=== PATIENT | female | born 1995 | race Caucasian/White ===

== ENCOUNTER → 2019-08-12 13:12 | Outpatient (BNVA) | payer MEDICAID, SELFPAY | PROVIDERS: PCP Family Medicine; Visit Provider Nurse Practitioner Women's Health | DX: Z01.89 Encounter for other specified special examinations (principal) | CPT/HCPCS: 84315 ==

== ENCOUNTER → 2019-08-27 14:05 | Outpatient (BNVA) | payer MEDICAID, SELFPAY | PROVIDERS: PCP Family Medicine; Visit Provider Obstetrics & Gynecology | DX: Z34.82 Encounter for supervision of other normal pregnancy, second trimester (principal) | CPT/HCPCS: 80307; 84315; 85027; 86592; 86762; 86803; 86850; 86900; 87086; 87340; 87491; 87591; 87806 ==

== ENCOUNTER → 2019-09-02 15:40 | Outpatient (BNVA) | payer MEDICAID, SELFPAY | PROVIDERS: PCP Family Medicine; Visit Provider Obstetrics & Gynecology | DX: Z3A.15 15 weeks gestation of pregnancy (principal); Z36.87 Encounter for antenatal screening for uncertain dates; O99.212 Obesity complicating pregnancy, second trimester | CPT/HCPCS: 76815; 82950 ==

== ENCOUNTER → 2019-09-04 10:51 | Outpatient (BNVA) | payer MEDICAID, SELFPAY | PROVIDERS: PCP Family Medicine; Referring Provider Obstetrics & Gynecology; Visit Provider Obstetrics & Gynecology | DX: R76.8 Other specified abnormal immunological findings in serum (principal) | CPT/HCPCS: 87522; 87902 ==

== ENCOUNTER → 2019-10-09 09:28 | Outpatient (BNVA) | payer MEDICAID, SELFPAY | PROVIDERS: Visit Provider Obstetrics & Gynecology | DX: Z36.89 Encounter for other specified antenatal screening (principal); Z3A.20 20 weeks gestation of pregnancy | CPT/HCPCS: 76805 ==

== ENCOUNTER 2019-10-09 11:55 | Emergency (ER) | payer MEDICAID, SELFPAY ==
[2019-10-09 12:03] VITALS: BP 123/85; PULSE 104; RESP 18; TEMP 36.7; O2SAT 97; BMI 34.1
[2019-10-09 12:11] VITALS: O2SAT 97
--- NOTE | 2019-10-09 12:41 | W.ED.GENADLT ---
HPI - General Adult General: Chief complaint: Nausea/Vomiting/Diarrhea Stated complaint: n/v 21 weeks Time Seen by Provider: 10/09/19 12:30 History of Present Illness: HPI narrative: 24-year-old female patient who is 21 weeks and presents to the emergency department with nausea and vomiting that started yesterday. She vomited somewhere between 10 and 15 times overnight. Last time she was able to keep anything down was yesterday morning. She went to her OBs office today for an ultrasound and the baby was looking good but because she is unable to keep anything down she is referred here for evaluation. She also has reduced urination. complaint: nausea/vomiting Onset (ago): day(s) (1 day) Severity: severe Associated symptoms: Reports chest pain; Deny dyspnea, headache(s), nausea, rash, palpitations or vomiting Review of Systems General: Reports: 10 or more systems reviewed and unremarkable except in HPI and below Const: Denies: fever, chills or body aches Eyes: Denies: change in vision or blurry vision ENMT: Denies: throat pain, enlarged tonsils, painful swallowing, hoarseness, mouth pain or swelling of lips/tongue Card: Reports: chest pain; Denies: palpitations, irregular heart rhythm, edema or swelling of feet/ankles Resp: Denies: shortness of breath, productive cough or non-productive cough GI: Denies: abdominal pain, nausea or vomiting : Denies: flank pain, difficulty urinating, painful urination, urinary frequency, urinary urgency or urinary hesitancy Musc: Denies: neck pain, back pain or extremity swelling Skin/Breast: Denies: rash, itching or redness Neuro: Denies: headache, numbness in extremities or weakness in extremities Endo: Denies: excessive urination, excessive thirst or tired all the time PFSH ED PFSH: Medical History (Updated 10/09/19 @ 15:15 by Michell George MD, [facility] [place]) Anxiety Surgical History (Updated 08/30/19 @ 14:17 by Mook Shaw MD) History of cholecystectomy (07/20/11) Laparoscopic. Performed by Dr. Loaiza at [facility] [place]. Family History (Updated 08/30/19 @ 14:24 by Mook Shaw MD) Grandfather Heart disease MATERNAL Diabetes Maternal Father No problems noted. Family/Other Stomach cancer Maternal uncle Breast cancer Maternal aunt Diabetes Maternal uncle Mother Multiple sclerosis Social History Smoking and tobacco status: current every day smoker cigarettes Packs smoked per day: 1 [ Other cigarette details: Started age 13. ] Smoking risk assessment/counseling performed?: Yes Alcohol intake: never Marital status: Physical Exam Narrative: EXAM NARRATIVE: Well-looking female in no real distress Const: COMMON NORMALS: no apparent distress EXAM LIMITATIONS: no altered mental status Resp: COMMON NORMALS: normal respiratory effort, no retractions, no use of accessory muscles and clear to auscultation bilaterally AUSCULTATION: clear to auscultation bilaterally Cardio: COMMON NORMALS: regular rate, regular rhythm, S1 normal heart sound, S2 normal heart sound, no gallops and no murmurs RATE: regular rate RHYTHM: regular rhythm HEART SOUNDS: S1 normal and S2 normal GI: OTHER: Gravid abdomen. No tenderness Extremity: OTHER: No edema Course Reevaluation(s): Reevaluation #1: Discussed her lab and imaging findings with her. Mild leukocytosis, UA suggestive of UTI. Nausea is much improved. Explained that I will manage as a case of UTI and with mild dehydration. We will discharge her on antibiotic and some Zofran. She voiced understanding and is in agreement with the plan. Time: 15:09 Vital Signs: Vital signs: Vital Signs Temperature 98.1 F 10/09/19 12:03 Pulse Rate 85 10/09/19 15:06 Respiratory Rate 18 10/09/19 12:03 Blood Pressure 94/47 10/09/19 15:06 Pulse Oximetry 97 10/09/19 15:06 MDM - General Adult MDM Narrative: Medical decision making narrative: 24-year-old patient who is 21 weeks and presented with a several hour history of vomiting with nausea. Evaluation in the ED shows a possible urinary tract infection with some mild dehydration. She received a liter of normal saline as well as intravenous Zofran following which her nausea improved. She was also given a dose of intravenous ceftriaxone. She discharged home on oral nitrofurantoin and Zofran. Lab Data: Labs: Lab Results 10/09/19 10/09/19 10/09/19 Range/Units 12:57 12:57 14:04 WBC 13.1 H (4.0-10.0) 10^3/ uL RBC 4.48 (4.1-5.3) 10^6/u L Hgb 13.0 (11.5-15.3) g/dL Hct 38.1 (37.0-47.0) % MCV 85.0 (81-99) fL MCH 29.0 (28.0-34.0) pg MCHC 34.1 (30.0-36.0) g/dL RDW 13.3 (12.1-15.1) % Plt Count 250 (130-400) 10^3/c mm MPV 10.3 (7.4-10.4) fL Neut % (Auto) 88.2 % Lymph % (Auto) 4.4 % Bates % (Auto) 6.6 % Eos % (Auto) 0.1 % Baso % (Auto) 0.2 % Neut # (Auto) 11.6 H (1.8-7.7) 10^3/u L Lymph # (Auto) 0.6 L (0.8-4.8) 10^3/u L Bates # (Auto) 0.9 (0.2-0.9) 10^3/u L Eos # (Auto) 0.0 (0.0-0.8) 10^3/u L Baso # (Auto) 0.0 (0.0-0.1) 10^3/u L Nucleated RBC % (a uto) 0 % Nucleated RBCs # 0.0 /100WBC Sodium 135 L (136-145) mmol/L Potassium 3.7 (3.5-5.1) mmol/L Chloride 100 (98-107) mmol/L Carbon Dioxide 22 (22-29) mmol/L Anion Gap 16.7 (5-19) BUN 7 (6-20) mg/dL Creatinine 0.5 (0.5-0.9) mg/dL GFR Calculation 150.3 H (90-130) mL/min Glucose 105 (65-115) mg/dL Calculated Osmolal ity 276 L (285-295) mOsm/k g Calcium 9.0 (8.5-10.5) mg/dL Total Bilirubin 0.5 (0.15-1.2) mg/dL AST 18 (0-32) U/L ALT 20 (0-33) U/L Alkaline Phosphata se 115 H (35-105) IU/L Total Protein 6.9 (6.6-8.7) g/dL Albumin 3.6 (3.5-5.2) g/dL Globulin 3.3 (1.3-4.6) g/dL Urine Color Annamaria (Yellow) Urine Appearance Sl hazy (CLEAR) Urine pH 5 (5-7) Ur Specific Gravit y 1.020 (1.005-1.030) Urine Protein Trace (Negative) Urine Glucose (UA) Norm (Normal) Urine Ketones 1+ H (Negative) Urine Blood Neg (Negative) Urine Nitrate Negative (Negative) Urine Bilirubin 1+ H (NEGATIVE) Urine Urobilinogen 4 H (Negative) mg/dL Ur Leukocyte Trang ase Trace H (Negative) Urine RBC None (0-2) /hpf Urine WBC 10-15 H (0-5) /hpf Ur Squamous Epith Cells 10-15 H (0-5) Urine Bacteria 3+ H (NONE) Urine Mucus 2+ Discharge Plan Discharge Patient Disposition: Home, Self-Care Clinical Impression: Dehydration UTI (urinary tract infection) during Qualifiers: Trimester: second trimester Qualified Code(s): O23.42 - Unspecified infection of urinary tract in , second trimester Nausea & vomiting Qualifiers: Vomiting type: unspecified Vomiting Intractability: non-intractable Qualified Code(s): R11.2 - Nausea with vomiting, unspecified Condition: Stable Prescriptions: New nitrofurantoin macrocrystal 100 mg capsule 100 mg PO BID 7 Days Qty: 14 RF: 0 ondansetron 4 mg tablet,disintegrating 4 mg PO Q8H PRN (Reason: nausea and vomiting) Qty: 30 RF: 0 Continued promethazine 25 mg suppository 25 mg NE Q8H PRN (Reason: nausea and vomiting) Qty: 1 RF: 6 albuterol sulfate [ProAir HFA] 90 mcg/actuation HFA aerosol inhaler 1 - 2 puff INHALATION Q6H PRN (Reason: shortness of breath or wheezing) Qty: 8.5 RF: 0 Discontinued ondansetron 4 mg tablet,disintegrating 4 mg PO Q4H Qty: 20 RF: 0 Discharge Orders: Discharge Order (Routine); Ordered 10/09/19 Ordered By: Michell George Discharge Diet: Advance as tolerated Discharge Activity: Resume usual activity Patient Instructions: Urinary Tract Infection in Women (ED), Dehydration (ED) Activity Restrictions/Additional Instructions: Return for any new or worsening symptoms. Drink plenty of fluids to keep well-hydrated. You might need to have frequent small sips. Take the medication as prescribed. Coding Level of Care Code ED Carpenter Inspector for Danielle Fwchiquita Exam Expanded Problem Focused
[2019-10-09 12:53] VITALS: O2SAT 97
[2019-10-09] MEDS: ondansetron 2 mg/ML SDV 2 mL 4 MG IVP (12:57)
[2019-10-09] MEDS: sodium chloride 0.9% 1,000 ML 999 ML IV (12:57)
[2019-10-09 13:08] LABS: Basophils % 0.2 %; Eosinophils % 0.1 %; Hematocrit 38.1 % (37.0-47.0); Lymphocytes # 0.6 10^3/uL (0.8-4.8); Lymphocytes % 4.4 %; Mean Corpuscular HGB Conc 34.1 g/dL (30.0-36.0); Mean Platelet Volume 10.3 fL (7.4-10.4); Monocytes # 0.9 10^3/uL (0.2-0.9); Monocytes % 6.6 %; Neutrophils # 11.6 10^3/uL (1.8-7.7); Neutrophils % 88.2 %; Nucleated Red Blood Cells % 0 %; Platelet Count 250 10^3/cmm (130-400); Red Blood Count 4.48 10^6/uL (4.1-5.3); Red Cell Distribution Width 13.3 % (12.1-15.1); White Blood Count 13.1 10^3/uL (4.0-10.0)
[2019-10-09 13:24] VITALS: BP 100/60; PULSE 89; O2SAT 97
[2019-10-09 13:29] LABS: Alanine Aminotransferase 20 U/L (0-33); Albumin Level 3.6 g/dL (3.5-5.2); Alkaline Phosphatase 115 IU/L (35-105); Anion Gap 16.7 (5-19); Aspartate Amino Transferase 18 U/L (0-32); Blood Urea Nitrogen 7 mg/dL (6-20); Carbon Dioxide 22 mmol/L (22-29); Chloride 100 mmol/L (98-107); Globulin 3.3 g/dL (1.3-4.6); Glomerular Filtration Rate 150.3 mL/min (90-130); Glucose 105 mg/dL (65-115); Osmolality Calculated 276 mOsm/kg (285-295); Potassium 3.7 mmol/L (3.5-5.1); Sodium 135 mmol/L (136-145); Total Bilirubin 0.5 mg/dL (0.15-1.2); Total Protein 6.9 g/dL (6.6-8.7)
[2019-10-09 14:20] LABS: Urine Appearance SL Hazy (CLEAR); Urine Color Amber (Yellow); pH Urine 5 (5-7)
[2019-10-09 14:21] LABS: Add Urine Microscopic? YES; Bilirubin Urine 1+ (NEGATIVE); Blood Urine Neg (Negative); Glucose Urine UA Norm (Normal); Ketones Urine 1+ (Negative); Leukocyte Esterase Urine Trace (Negative); Nitrate Urine Negative (Negative); Protein Urine Trace (Negative); Urobilinogen Urine 4 mg/dL (Negative)
[2019-10-09 14:28] LABS: Add Urine Culture? Yes; Bacteria Urine 3+; Mucus Urine 2+
[2019-10-09] MEDS: cefTRIAXone 1,000 MG in sodium chloride 0.9% (plus) 50 ML 100 MG IV (15:04)
[2019-10-09 15:06] VITALS: BP 94/47; PULSE 85; O2SAT 97
[2019-10-09 15:22] VITALS: BP 115/67; PULSE 74; O2SAT 97
== END 2019-10-09 15:22 | disposition home or self-care (01) ==
PROVIDERS: Emergency Provider Family Medicine
DX: O23.42 Unspecified infection of urinary tract in pregnancy, second trimester (principal); Z3A.21 21 weeks gestation of pregnancy; O21.8 Other vomiting complicating pregnancy; O26.892 Other specified pregnancy related conditions, second trimester; E86.0 Dehydration; O99.332 Smoking (tobacco) complicating pregnancy, second trimester; F17.210 Nicotine dependence, cigarettes, uncomplicated
CPT/HCPCS: 12345; 36415; 80053; 81001; 85025; 87086; 96360; 96365; 96375; 99283; J0696; J2405; J7030

== ENCOUNTER → 2019-10-16 08:21 | Outpatient (BNVA) | payer MEDICAID, SELFPAY | PROVIDERS: Visit Provider Obstetrics & Gynecology | DX: Z01.89 Encounter for other specified special examinations (principal) | CPT/HCPCS: 84315 ==

== ENCOUNTER → 2019-11-27 11:45 | Outpatient (BNVA) | payer MEDICAID, SELFPAY | PROVIDERS: Visit Provider Obstetrics & Gynecology | DX: O26.892 Other specified pregnancy related conditions, second trimester (principal); N89.8 Other specified noninflammatory disorders of vagina | CPT/HCPCS: 82950; 84315; 85027; 87210 ==

== ENCOUNTER 2019-12-26 13:58 | Outpatient (CLI) | payer MEDICAID, SELFPAY ==
[2019-12-26 15:18] LABS: Total Volume, Urine 825 mL
[2019-12-26 15:55] LABS: Total Protein 24 Hour Urine 437.3 mg/24HR (0-150)
== END 2019-12-26 13:59 | disposition home or self-care (01) ==
LOC: LAB 14:03
PROVIDERS: Visit Provider Nurse Practitioner Women's Health
DX: O12.23 Gestational edema with proteinuria, third trimester (principal)
CPT/HCPCS: 84156

== ENCOUNTER → 2019-12-30 11:49 | Outpatient (BNVA) | payer MEDICAID, SELFPAY | PROVIDERS: Visit Provider Obstetrics & Gynecology | DX: O14.90 Unspecified pre-eclampsia, unspecified trimester (principal); O12.13 Gestational proteinuria, third trimester; O99.332 Smoking (tobacco) complicating pregnancy, second trimester | CPT/HCPCS: 80053; 82570; 84156; 84315; 84550; 85025 ==

== ENCOUNTER → 2020-01-16 08:47 | Outpatient (BNVA) | payer MEDICAID, SELFPAY | PROVIDERS: Visit Provider Obstetrics & Gynecology | DX: O09.893 Supervision of other high risk pregnancies, third trimester (principal); O14.93 Unspecified pre-eclampsia, third trimester | CPT/HCPCS: 84315; 87081 ==

== ENCOUNTER 2020-01-30 18:08 | Inpatient (IN) | payer MEDICAID, SELFPAY ==
[2020-01-30] VITALS (16 sets, daily range): BP systolic 0–138; BP diastolic 0–91; PULSE 94–109; RESP 19; TEMP 36.9; BMI 39.9
[2020-01-30 18:49] LABS: Basophils % 0.2 %; Eosinophils # 0.1 10^3/uL (0.0-0.8); Eosinophils % 0.9 %; Hematocrit 32.7 % (37.0-47.0); Hemoglobin 10.7 g/dL (11.5-15.3); Lymphocytes # 1.6 10^3/uL (0.8-4.8); Lymphocytes % 13.8 %; Mean Corpuscular HGB Conc 32.7 g/dL (30.0-36.0); Mean Corpuscular Hemoglobin 26.6 pg (28.0-34.0); Mean Corpuscular Volume 81.3 fL (81-99); Mean Platelet Volume 10.1 fL (7.4-10.4); Monocytes # 0.9 10^3/uL (0.2-0.9); Monocytes % 7.2 %; Neutrophils # 9.11 10^3/uL (1.8-7.7); Neutrophils % 77.4 %; Nucleated Red Blood Cells % 0 %; Platelet Count 312 10^3/cmm (130-400); Red Blood Count 4.02 10^6/uL (4.1-5.3); Red Cell Distribution Width 13.4 % (12.1-15.1); White Blood Count 11.8 10^3/uL (4.0-10.0)
[2020-01-30] MEDS: lactated ringers 1,000 ML 999 ML IV (18:51)
[2020-01-30 19:09] LABS: Alanine Aminotransferase 14 U/L (0-33); Albumin Level 3.2 g/dL (3.5-5.2); Alkaline Phosphatase 173 IU/L (35-105); Anion Gap 14.5 (5-19); Aspartate Amino Transferase 15 U/L (0-32); Blood Urea Nitrogen 5 mg/dL (6-20); Calcium 9.6 mg/dL (8.5-10.5); Carbon Dioxide 21 mmol/L (22-29); Chloride 103 mmol/L (98-107); Globulin 3.2 g/dL (1.3-4.6); Glomerular Filtration Rate 150.3 mL/min (90-130); Glucose 119 mg/dL (65-115); Osmolality Calculated 277 mOsm/kg (285-295); Potassium 3.5 mmol/L (3.5-5.1); Sodium 135 mmol/L (136-145); Total Bilirubin 0.2 mg/dL (0.15-1.2); Total Protein 6.4 g/dL (6.6-8.7); Uric Acid 3.3 mg/dL (2.4-5.7)
[2020-01-30] MEDS: miSOPROStol 100 mcg tablet 25 MCG VAGINAL (19:52)
[2020-01-31] VITALS (99 sets, daily range): BP systolic 0–149; BP diastolic 0–91; PULSE 72–122; RESP 18–20; TEMP 36.4–36.9; O2SAT 96–98
[2020-01-31] MEDS: miSOPROStol 100 mcg tablet 25 MCG VAGINAL (03:12)
[2020-01-31] MEDS: alum-mag-hydroxide-sime 30 mL UDC PO (07:27)
[2020-01-31] MEDS: lactated ringers 1,000 ML 999 ML IV (10:10)
--- NOTE | 2020-01-31 10:38 | ANES.PREANE2 ---
Pre-Anesthetic Assessment Pre-Anesthetic Assessment: Height/Weight: Height 1.75 m Weight 122.47 kg Temp Pulse Resp BP 97.6 F 92 20 H 149/76 01/31/20 08:50 01/31/20 10:33 01/31/20 08:50 01/31/20 10:33 Preop Diagnosis: IUP Proposed Procedure: lumbar labor epidural Was Beta Juan Pablo taken within 24 hours: N/A Last intake: 0801/30 Social: Social History: Tobacco Packs per day: 1 Airway: Submandibular: WNL Cervical ROM: WNL Pulmonary: Pulmonary: None reported CV/HEM: CV/HEM: None reported : : None reported Comments: mild pre-eclampsia Hepatic: Hepatic: None reported GI: GI: None reported Metabolic: Metabolic: None reported Musc/skel: Musc/skel: Lower Back Pain Neuropsych: Neuropsych: None reported Anesthetic Plan: ASA status: 2 Anesthesia: Regional (specify below) (epidural) Meds/Allergies Current Medications: Current Medications Generic Name Dose Route Start Last Admin Trade Name Freq PRN Reason Stop Dose Admin Al Hydrox/Mg [place] x/Simethicone 30 ml 01/30/20 18:34 01/31/20 07:27 Maalox PO 30 ml Q4H PRN Administration INDIGESTION Lactated Ringer's 1,000 mls @ 999 m ls/hr 01/30/20 18:34 01/30/20 18:51 Lactated Ringers IV 999 mls/hr .Q1H1M PRN Administration Per L&D Rescitati on Protocol Lactated Ringer's 1,000 mls @ 999 m ls/hr 01/31/20 09:59 01/31/20 10:10 Lactated Ringers IV 999 mls/hr .Q1H1M PRN Administration non-reassuring FH Ts PFSH Anesthesia PFSH: Medical History Anxiety Surgical History History of cholecystectomy (07/20/11) Laparoscopic. Performed by Dr. Loaiza at [facility] [place]. Family History Grandfather Heart disease MATERNAL Diabetes Maternal Father No problems noted. Family/Other Stomach cancer Maternal uncle Breast cancer Maternal aunt Diabetes Maternal uncle Mother Multiple sclerosis Social History Smoking and tobacco status: current every day smoker cigarettes Packs smoked per day: 1 [ Other cigarette details: Started age 13. ] Alcohol intake: never Female Reproductive History: : 6 Data Anesthesia CBC & Chem 7: 01/30/20 18:35 01/30/20 18:35 Other Labs: Laboratory Results - last 48 hr 01/30/20 01/30/20 18:35 18:35 WBC 11.8 H RBC 4.02 L Hgb 10.7 L Hct 32.7 L MCV 81.3 MCH 26.6 L MCHC 32.7 RDW 13.4 Plt Count 312 MPV 10.1 Neut % (Auto) 77.4 Lymph % (Auto) 13.8 [place] % (Auto) 7.2 Eos % (Auto) 0.9 Baso % (Auto) 0.2 Neut # (Auto) 9.11 H Lymph # (Auto) 1.6 [place] # (Auto) 0.9 Eos # (Auto) 0.1 Baso # (Auto) 0.0 Nucleated RBC % (auto) 0 Nucleated RBCs # 0.0 Sodium 135 L Potassium 3.5 Chloride 103 Carbon Dioxide 21 L Anion Gap 14.5 BUN 5 L Creatinine 0.5 GFR Calculation 150.3 H Glucose 119 H Calculated Osmolality 277 L Uric Acid 3.3 Calcium 9.6 Total Bilirubin 0.2 AST 15 ALT 14 Alkaline Phosphatase 173 H Total Protein 6.4 L Albumin 3.2 L Globulin 3.2 Cardiac Studies: No Data to Display
--- NOTE | 2020-01-31 11:17 | P.ANES_ITS ---
Anesthesia Procedures Procedure/Date: 01/31/20 Epidural: Time Out Performed: Yes Consents Signed: Procedure Consent Consent: from patient, risks and benefits reviewed and patient agrees to proceed Lumbar Level: L3-L4 Epidural position: sitting Epidural procedure: sterile prep of area, 1% lidocaine to numb the area (5), 18 g needle, negative f or paresthesia passed, neg for paresthesia, test dose given, 1.5% xylocaine 1:200k epi (5), 0.2% Ropivacaine bolus ml (5), placed PCEA (5cc q10min x 3), no systemic response, sterile dressing applied, L.U.D. no apparent complications and 0.2% Ropiavacaine @ mls/hr (13) Additional Comments: called to OB for pt requesting Epidural, preoped and consent signed, labs reviewed and pt epidural completed. catheter 5cm in space. VSS throughout and Last BP is 115/76. pain much improved,
[2020-01-31] MEDS: dextrose 5%-lactated ringers 1,000 ML 125 ML IV (11:39)
[2020-01-31] MEDS: oxytocin 30 UNIT/500 ML BAG IV (12:29)
[2020-01-31] MEDS: ondansetron 2 mg/ML SDV 2 mL 4 MG IVP (16:25)
--- NOTE | 2020-01-31 18:23 | PM.DELIVERY ---
Delivery Note: Date of delivery: January 31, 2020 Pre-delivery diagnoses: 1. Mild preeclampsia in third trimester 2. at 37-4/7 weeks gestation. 3. Obesity in in third trimester Post-delivery diagnoses: 1. Mild preeclampsia - delivered 2. at 37-4/7 weeks gestation. 3. Obesity in - delivered 4. Viable female Procedure: Spontaneous vaginal delivery Op report anesthesia: Epidural Delivering Physician: Dr. Mook Shaw Estimated blood loss (mL): 100 Pre-Delivery Course: Patient is a 24-year-old white female 6, para 1-0-4-1 with an LMP of 05/13/2019 and an EDC of 02/17/2020 based on LMP and consistent with a 15-week ultrasound, which placed her at 37-3/7 weeks gestation at the time of admission. She presented to labor and delivery 01/30/2020 at 18:08 for cervical ripening and induction of labor due to mild preeclampsia. care has been mainly provided by Dr. Mook Shaw at [facility]. She was diagnosed with mild preeclampsia at 31 weeks gestation. She had had a minimally elevated blood pressure at the time of 140/92. 24-hour urine had been ordered with a total protein of 437 mg. Based upon this, she had been diagnosed with mild preeclampsia. Blood pressures have been followed since that time in the office and at home and she would have a rare mildly elevated blood pressures. Because of the diagnosis of preeclampsia, recommendations were to deliver during 37th week and she is presenting for induction of labor at this time. On admission her blood pressures were normal. Laboratory testing was negative for help syndrome. She did have 1+ protein on urine dipstick. Category 1 heart rate tracing was noted on admission. Cervix was 40% effaced and 1 to 2 cm dilated at -4 station. She was not started on magnesium sulfate due to her mild preeclampsia diagnosis. She received a dose of 25 mcg of Cytotec vaginally and initially contracted frequently. During the night, contractions slowed and she had a second dose of Cytotec placed at approximately 03:00 on 01/30. By 09:36 she was 50% effaced and 4-5 cm dilated. She had become more uncomfortable and had epidural placed. By 11:25, contractions had slowed and she had not made any further cervical change and as a result Pitocin was started. By 16:50 she had spontaneous rupture of membranes with clear fluid present. She was found to be 100% effaced and 8 cm dilated. She was found to be completely dilated by 17:20. heart rate monitoring was reassuring during the labor course. She continued to have only very rarely, mildly elevated blood pressures during the labor course. Delivery: Patient was prepared for delivery. As the nurse was putting her up in the stirrups, she was noted to be . With the next contraction, she delivered as a spontaneous vaginal delivery of an occiput anterior female over an intact perineum under epidural anesthesia at 17:45. Following delivery of the 's head, one loop of nuchal cord was noted. The cord was unable to be reduced before the baby delivered and was delivered through the loop of cord. Left shoulder was anterior. Baby was placed on the mother's abdomen and left in the care of the waiting nurse. It was spontaneously crying. Cord was clamped and then cut by the reported father of the baby. Cord blood was obtained. Pitocin bolus was started. Placenta delivered intact by simple expression at 17:48. The cervix and vagina were palpated and noted to be intact. The labia were inspected and noted to be intact except for superficial abrasions which required no repair. Bleeding was initially well controlled, but as she was being cleaned up after delivery she had a couple of small gushes of blood. On bimanual exam the main part of the uterus was devonte well but she was noted to have a floppy lower uterine segment. As a result she was given 800 mcg of Cytotec rectally. She was continued on the Pitocin bolus that had been running since delivery. FINDINGS 1. Viable female infant weighing 6 lbs 6 oz (2900 g) with a length of 19 inches and Apgars of 9 at 1 minute and 9 at 5 minutes. 2. Three-vessel cord with one loop of nuchal cord noted. 3. Normal-appearing placenta with a central cord insertion. Post-Delivery Status: Mother and infant were left to recover in satisfactory condition. After delivery, I discussed with patient and her partner regarding her plans for sterilization. She had signed Medicaid consent in the office and was planning on a sterilization. After discussion with them, she is decided to wait and do the sterilization as a laparoscopic complete salpingectomy at approximately 5 to 6 weeks . A&P Assessment and plan (1) Pre-eclampsia, mild, delivered: Status: Acute Coding Level of Care Code Acute Curing Supervisor for Chg Fwd Diagnoses Pre-eclampsia, mild, delivered O14.04
[2020-01-31] MEDS: TRAMadol 50 mg Tablet PO (22:22)
[2020-02-01 00:08] VITALS: BP 96/60; PULSE 98; RESP 18; TEMP 36.8; O2SAT 97
[2020-02-01 01:56] VITALS: BP 106/66; PULSE 87; RESP 18; TEMP 36.7; O2SAT 96
[2020-02-01 04:00] VITALS: BP 100/65; PULSE 95; RESP 18; TEMP 36.4; O2SAT 97
[2020-02-01] MEDS: TRAMadol 50 mg Tablet PO (04:47)
[2020-02-01 06:14] LABS: Hematocrit 31.8 % (37.0-47.0); Hemoglobin 10.1 g/dL (11.5-15.3); Mean Corpuscular HGB Conc 31.8 g/dL (30.0-36.0); Mean Corpuscular Hemoglobin 26.2 pg (28.0-34.0); Mean Corpuscular Volume 82.6 fL (81-99); Mean Platelet Volume 10.2 fL (7.4-10.4); Platelet Count 228 10^3/cmm (130-400); Red Blood Count 3.85 10^6/uL (4.1-5.3); Red Cell Distribution Width 13.4 % (12.1-15.1); White Blood Count 12.2 10^3/uL (4.0-10.0)
[2020-02-01] MEDS: docusate sodium 100 mg Capsule PO (09:44)
[2020-02-01] MEDS: prenatal vitamin Capsule 1 CAP PO (09:44)
[2020-02-01 09:45] VITALS: BP 126/83; PULSE 103; RESP 16; TEMP 36.4
[2020-02-01 16:10] VITALS: BP 147/81; PULSE 75; RESP 16; TEMP 36.4
--- NOTE | 2020-02-01 17:16 | PM.OBGYDC ---
Discharge Providers CERTIFIED SURGICAL TECHNOLOGIST Date of Admission: 01/30/20 18:08 Date of Discharge: 02/01/20 Attending Provider at Admission: Mook Shaw MD Attending Provider at Discharge: Mook Shaw MD Diagnoses at Discharge Discharge Diagnosis (1) Pre-eclampsia, mild, delivered: Status: Acute Reason for Visit Reason for Visit: Induction of Labor for Pre-eclampsia Hospital Course Hospital Course: Patient is a 24-year-old white female 6, para 1-0-4-1 with an LMP of 05/13/2019 and an EDC of 02/17/2020 based on LMP and consistent with a 15-week ultrasound, which placed her at 37-3/7 weeks gestation at admission. Her has been complicated by diagnosis of mild preeclampsia at 31 weeks gestation. She had been monitored since that time with only occasional mildly elevated blood pressures. However due to the preeclampsia diagnosis, recommendations were delivery during 37th week and is now presenting for this. On admission, her initial blood evaluation for help syndrome was negative. She had normal blood pressures initially. She was started on Cytotec 25 mcg vaginally and received a total of 2 doses. By the morning of 01/30, she had become more uncomfortable and had epidural placed. Following this contractions slowed and she was started on Pitocin. She had spontaneous rupture of membranes at 16:50 with clear fluid present. She was 8 cm dilated at that time. She progressed to complete dilation by 17:20. Blood pressure readings had been normal to mildly elevated during the labor course. She had reassuring heart rate monitoring during the course. She delivered as a spontaneous vaginal delivery of an occiput anterior female infant over an intact perineum under epidural anesthesia at 17:45. Baby weighed 6 lbs 6 oz (2900 g) with a length of 19 inches and Apgars of 9 at 1 minute and 9 at 5 minutes. She had superficial abrasions which required no repair. Patient had been planning to have sterilization done. At discussion following delivery, she is decided to wait and have this done at about 5 to 6 weeks and have a laparoscopic complete salpingectomy performed. Day 1 She is without complaints. She states her pain is been well controlled. She denied any lightheadedness or dizziness with ambulation. She denied any shortness of breath or chest pains. She denied any problems with nausea or vomiting and was tolerating a regular diet. She denied problems with urination. She states that her bleeding has slowed. She is requesting to go home. Physical Exam: See below. Plan Patient has had normal to occasional minimally elevated blood pressures since delivery. None of these were requiring medications for treatment. With the normal readings, I feel comfortable with her being released at this time. However, she is to follow her blood pressures at home like she had been doing while she had been . Discharge instructions discussed with patient. Patient to follow-up in the office in approximately 6 weeks. Information Peripartum Data: Infant Delivery Method: Vaginal Physical Exam Const: COMMON NORMALS: no acute distress, average body habitus, alert and well nourished GENERAL APPEARANCE: well developed ORIENTATION/CONSCIOUSNESS: Yes oriented to person, Yes oriented to place and Yes oriented to time Resp: COMMON NORMALS: normal respiratory effort and clear to auscultation bilaterally AUSCULTATION: clear to auscultation bilaterally Cardio: COMMON NORMALS: regular rate, regular rhythm, No gallops present (Cardio) and No rub (Cardio) RATE: regular rate RHYTHM: regular rhythm GI: COMMON NORMALS: Soft to palpation, non-tender, No hepatosplenomegaly present and no masses (Except for nontender uterus, approximately 2 fingerbreadths below the umbilicus.) AUSCULTATION: Yes normoactive bowel sounds PALPATION: Yes Soft to palpation and Yes No hepatosplenomegaly present Extremity: COMMON NORMALS: no calf tenderness NARRATIVE EXTREMITY EXAM: 1+ lower extremity edema bilaterally. Neuro: SENSORIUM/ORIENTATION: Yes alert, Yes oriented to person, Yes oriented to place and Yes oriented to time Psych: COMMON NORMALS: normal affect MOOD & AFFECT: Yes euthymic mood Urinary Catheter Management^: [place]: Cath Placed During This Visit: yes, but has since been removed by the nurse Reason for Continuing Indwelling Catheter: Decision to DC Catheter Urinary Catheter Date of Insertion: 01/31/20 Urinary Catheter Time of Insertion: 11:25 Date Urinary Catheter Removed: 01/31/20 Time Urinary Catheter Discontinued: 17:40 Discharge Data Data Completed and Pending: Labs from last 24 hours 02/01/20 05:50 WBC 12.2 H RBC 3.85 L Hgb 10.1 L Hct 31.8 L MCV 82.6 MCH 26.2 L MCHC 31.8 RDW 13.4 Plt Count 228 MPV 10.2 Vitals: Last Vital Signs Temp 97.5 F L 02/01/20 16:10 Pulse 75 02/01/20 16:10 Resp 16 02/01/20 16:10 BP 147/81 02/01/20 16:10 Pulse Ox 97 02/01/20 04:00 Discharge Plan Discharge Patient Disposition: Home Condition: Stable Prescriptions: No Action No Known Home Medications RF: 0 Discharge Orders: Discharge Order (Routine); Ordered 02/01/20 Ordered By: Mook Shaw Referrals: Mook Shaw MD [Physician] - 6 Weeks ( exam) Discharge Diet: Regular Discharge Activity: Resume usual activity Patient Instructions: OB Discharge Report, OB Food/Drug Interaction Guide, OB Home Care Instructions, OB Home Care, OB Vaginal Deliveries - [facility] Activity Restrictions/Additional Instructions: May use [id number] ibuprofen 200 mg, 3 tablets 4 times a day or 4 tablets 3 times a day, as needed for pain Discharge Attestations CERTIFIED SURGICAL TECHNOLOGIST Time Spent in Discharge Care*: less than 30 min Coding Level of Care Code Acute Wrapper Layer And Examiner Soft Work for Chg Fwd Diagnoses Pre-eclampsia, mild, delivered O14.04
[2020-02-01 18:05] VITALS: BP 135/81; PULSE 101; RESP 16; TEMP 36.4
--- NOTE | 2020-02-02 14:29 | PC.RESP ---
Smoking cessation information sent to patient.
== END 2020-02-01 18:20 | disposition home or self-care (01) | DRG 807 ==
PROVIDERS: Admitting Provider Obstetrics & Gynecology; Visit Provider Obstetrics & Gynecology
DX: O14.04 Mild to moderate pre-eclampsia, complicating childbirth (principal); Z37.0 Single live birth; Z3A.37 37 weeks gestation of pregnancy; O99.214 Obesity complicating childbirth; O69.81X0 Labor and delivery complicated by cord around neck, without compression, not applicable or unspecified
CPT/HCPCS: 12345; 36415; 51702; 59409; 80053; 84550; 85025; 85027; 96375; J2405; J2795

== ENCOUNTER 2020-02-06 21:19 | Emergency (ER) | payer MEDICAID, SELFPAY ==
[2020-02-06 21:24] VITALS: BP 139/97; PULSE 79; RESP 18; TEMP 36.8; O2SAT 96; BMI 36.9
[2020-02-06 22:06] LABS: Basophils % 0.2 %; Eosinophils # 0.3 10^3/uL (0.0-0.8); Eosinophils % 2.2 %; Hematocrit 32.9 % (37.0-47.0); Hemoglobin 10.5 g/dL (11.5-15.3); Lymphocytes # 1.7 10^3/uL (0.8-4.8); Lymphocytes % 15.2 %; Mean Corpuscular HGB Conc 31.9 g/dL (30.0-36.0); Mean Corpuscular Hemoglobin 26.8 pg (28.0-34.0); Mean Corpuscular Volume 83.9 fL (81-99); Mean Platelet Volume 9.6 fL (7.4-10.4); Monocytes # 0.9 10^3/uL (0.2-0.9); Neutrophils # 8.31 10^3/uL (1.8-7.7); Neutrophils % 73.3 %; Nucleated Red Blood Cells % 0 %; Platelet Count 301 10^3/cmm (130-400); Red Blood Count 3.92 10^6/uL (4.1-5.3); Red Cell Distribution Width 14.1 % (12.1-15.1); White Blood Count 11.4 10^3/uL (4.0-10.0)
[2020-02-06 22:12] VITALS: BP 132/89; RESP 18; O2SAT 97
[2020-02-06 22:18] LABS: Add Urine Microscopic? YES; Bilirubin Urine Neg (NEGATIVE); Blood Urine 3+ (Negative); Glucose Urine UA Norm (Normal); Ketones Urine Negative (Negative); Leukocyte Esterase Urine 2+ (Negative); Nitrate Urine Negative (Negative); Protein Urine 1+ (Negative); Urine Color Yellow (Yellow); Urobilinogen Urine Norm (Negative); pH Urine 6.5 (5-7)
[2020-02-06 22:23] LABS: Alanine Aminotransferase 12 U/L (0-33); Albumin Level 3.1 g/dL (3.5-5.2); Alkaline Phosphatase 126 IU/L (35-105); Anion Gap 12.3 (5-19); Aspartate Amino Transferase 13 U/L (0-32); Blood Urea Nitrogen 8 mg/dL (6-20); Calcium 9.3 mg/dL (8.5-10.5); Carbon Dioxide 24 mmol/L (22-29); Chloride 105 mmol/L (98-107); Glomerular Filtration Rate 121.8 mL/min (90-130); Glucose 89 mg/dL (65-115); Osmolality Calculated 281 mOsm/kg (285-295); Potassium 3.3 mmol/L (3.5-5.1); Sodium 138 mmol/L (136-145); Total Bilirubin 0.2 mg/dL (0.15-1.2); Total Protein 6.1 g/dL (6.6-8.7)
[2020-02-06 22:23] LABS: Add Urine Culture? No; Bacteria Urine TRACE; Mucus Urine 1+; RBC Urine >100 /hpf (0-2); Squamous Epithelial Cell Urine 15-25 (0-5); WBC Urine >100 /hpf (0-5)
[2020-02-06 22:48] VITALS: BP 122/78; PULSE 79; RESP 16; O2SAT 98
[2020-02-06 23:06] VITALS: BP 122/85; PULSE 72; RESP 18; O2SAT 96
--- NOTE | 2020-02-07 01:57 | ED_ITS ---
HPI - General Adult General: Chief complaint: General Medical Stated complaint: hypertension Time Seen by Provider: 02/06/20 21:29 History of Present Illness: HPI narrative: 24-year-old female who delivered a week ago. She had some mild preeclampsia prior to her delivery. She was not treated with antihypertensives. She reports elevated blood pressures the past couple of days. Her diastolic pressure got up to 104 this evening, so she comes to the hospital. She had a mild headache with that pressure. She says that the swelling to her lower extremities has been worse the past couple of days Onset (ago): day(s) (2) Location: head and lower extremity Radiation: non-radiation Pain Consistency: constant Exacerbating factors: none Associated symptoms: Reports headache(s) and nausea; Deny chest pain, cough, dyspnea, fevers/chills, rash, palpitations, seizures or vomiting Treatments prior to arrival: none Review of Systems Const: Denies: fever(s) or chills Eyes: Denies: change in vision or blurry vision ENMT: Denies: odynophagia, swelling of lips/tongue, bleeding gums, dental pain, change in hearing, epistaxis, post nasal drip or sinus pain Card: Denies: chest pain, palpitations, irregular heart rhythm, edema, swelling of feet/ankles, dyspnea on exertion or orthopnea Resp: Denies: dyspnea GI: Reports: nausea; Denies: vomiting : Denies: dysuria, urinary frequency, urinary urgency or hematuria Musc: Denies: neck pain, back pain, joint redness or joint warmth Skin/Breast: Denies: rash, pruritus or erythema Neuro: Reports: headache(s) Psych: Denies: anxiety, visual hallucinations or auditory hallucinations PFSH ED PFSH: Medical History (Updated 02/06/20 @ 22:55 by Kirby Mcbride DO) Anxiety Surgical History History of cholecystectomy (07/20/11) Laparoscopic[place] [facility] [place] Family History Grandfather Heart disease MATERNAL Diabetes Maternal Father No problems noted. Family/Other Stomach cancer Maternal uncle Breast cancer Maternal aunt Diabetes Maternal uncle Mother Multiple sclerosis Social History Smoking and tobacco status: current every day smoker cigarettes Packs smoked per day: 1 [ Other cigarette details: Started age 13. ] Alcohol intake: never Physical Exam Const: GENERAL APPEARANCE: well developed ORIENTATION/CONSCIOUSNESS: Yes oriented to person, Yes oriented to place and Yes oriented to time HENMT: COMMON NORMALS: normocephalic, external ears normal and Normal external nose present HEAD & SCALP: normocephalic FACE & SINUS: normal facial exam NOSE: Normal external nose present and No nasal discharge present EXTERNAL EAR: Yes external ears normal MOUTH: tongue normal Eye: COMMON NORMALS: Equal, round and reactive pupils present, EOMs intact bilaterally and conjunctivae normal EYELID: eyelids normal CONJUNCTIVA: Yes conjunctivae normal PUPIL: Yes Equal, round and reactive pupils present Neck/C-Spine: GENERAL: No tracheal deviation Chest: COMMONS NORMALS: normal inspection of the chest CHEST: No tenderness Resp: COMMON NORMALS: clear to auscultation bilaterally EFFORT & INSPECTION: No tachypneic, No respiratory distress, No retractions, No uses accessory muscles and No tracheal deviation AUSCULTATION: clear to auscultation bilaterally, no rhonchi, no wheezes and lung sounds not diminished Cardio: COMMON NORMALS: regular rate and regular rhythm RATE: regular rate RHYTHM: regular rhythm HEART SOUNDS: no murmurs PERIPHERAL PULSES: radial pulses present GI: INSPECTION: No abdominal distension AUSCULTATION: No Hyperactive bowel sounds present and No Hypoactive bowel sounds present PALPATION: No Guarding due to palpation present (GI) and No Rigid due to palpation PERCUSSION: no dullness to percussion and no tympanic to percussion Extremity: NARRATIVE EXTREMITY EXAM: Mild nonpitting edema to bilateral lower extremities Neuro: SENSORIUM/ORIENTATION: Yes oriented to person, Yes oriented to place and Yes oriented to time Psych: COMMON NORMALS: mental status grossly normal Skin: COMMON NORMALS: no rashes or lesions noted GENERAL SKIN EXAM: no rashes or lesions noted Course Vital Signs: Vital signs: Vital Signs Temperature 98.2 F 02/06/20 21:24 Pulse Rate 72 02/06/20 23:06 Respiratory Rate 18 02/06/20 23:06 Blood Pressure 122/85 02/06/20 23:06 Pulse Oximetry 96 02/06/20 23:06 MDM - General Adult MDM Narrative: Medical decision making narrative: Patient has a history of preeclampsia. She is only a week . Blood pressures been elevated on and off. They have not been overly hypertensive here. She is not required treatment. She has been following them closely. She only has 1+ protein in her urine here. Her potassium is mildly low, otherwise her laboratory is benign. She does have a urinary tract infection, or at least it is suspicious, although the urine does appear contaminated. She has 2+ leukocyte esterase despite. She will be treated for this. She will also receive a prescription for Procardia, to take if her blood pressure remains above 140/90. She should return to see her primary care or OB physician in the next few days. Lab Data: Labs: Lab Results 02/06/20 02/06/20 02/06/20 Range/Units 21:52 21:58 21:58 WBC 11.4 H (4.0-10.0) 10^3/ uL RBC 3.92 L (4.1-5.3) 10^6/u L Hgb 10.5 L (11.5-15.3) g/dL Hct 32.9 L (37.0-47.0) % MCV 83.9 (81-99) fL MCH 26.8 L (28.0-34.0) pg MCHC 31.9 (30.0-36.0) g/dL RDW 14.1 (12.1-15.1) % Plt Count 301 (130-400) 10^3/c mm MPV 9.6 (7.4-10.4) fL Neut % (Auto) 73.3 % Lymph % (Auto) 15.2 % [place] % (Auto) 8.0 % Eos % (Auto) 2.2 % Baso % (Auto) 0.2 % Neut # (Auto) 8.31 H (1.8-7.7) 10^3/u L Lymph # (Auto) 1.7 (0.8-4.8) 10^3/u L [place]ayson # (Auto) 0.9 (0.2-0.9) 10^3/u L Eos # (Auto) 0.3 (0.0-0.8) 10^3/u L Baso # (Auto) 0.0 (0.0-0.1) 10^3/u L Nucleated RBC % (a uto) 0 % Nucleated RBCs # 0.0 /100WBC Sodium 138 (136-145) mmol/L Potassium 3.3 L (3.5-5.1) mmol/L Chloride 105 (98-107) mmol/L Carbon Dioxide 24 (22-29) mmol/L Anion Gap 12.3 (5-19) BUN 8 (6-20) mg/dL Creatinine 0.6 (0.5-0.9) mg/dL GFR Calculation 121.8 (90-130) mL/min Glucose 89 (65-115) mg/dL Calculated Osmolal ity 281 L (285-295) mOsm/k g Calcium 9.3 (8.5-10.5) mg/dL Total Bilirubin 0.2 (0.15-1.2) mg/dL AST 13 (0-32) U/L ALT 12 (0-33) U/L Alkaline Phosphata se 126 H (35-105) IU/L Total Protein 6.1 L (6.6-8.7) g/dL Albumin 3.1 L (3.5-5.2) g/dL Globulin 3.0 (1.3-4.6) g/dL Urine Color Yellow (Yellow) Urine Appearance Sl cloudy A (CLEAR) Urine pH 6.5 (5-7) Ur Specific Gravit y 1.010 (1.005-1.030) Urine Protein 1+ H (Negative) Urine Glucose (UA) Norm (Normal) Urine Ketones Negative (Negative) Urine Blood 3+ H (Negative) Urine Nitrate Negative (Negative) Urine Bilirubin Neg (NEGATIVE) Urine Urobilinogen Norm (Negative) mg/dL Ur Leukocyte Trang ase 2+ H (Negative) Urine RBC >100 H (0-2) /hpf Urine WBC >100 H (0-5) /hpf Ur Squamous Epith Cells 15-25 H (0-5) Amorphous Sediment Not Reportable Urine Bacteria Trace (NONE) Urine Mucus 1+ Discharge Plan Discharge Patient Disposition: Home Clinical Impression: Pre-eclampsia, mild, delivered UTI (urinary tract infection) Qualifiers: Urinary tract infection type: acute cystitis Hematuria presence: with hematuria Qualified Code(s): N30.01 - Acute cystitis with hematuria Condition: Stable Prescriptions: New Procardia 10 mg capsule 10 mg PO Q8H Qty: 20 RF: 0 Macrobid 100 mg capsule 100 mg PO BID 7 Days Qty: 14 RF: 0 No Action Excedrin Extra Strength 250-250-65 mg Tablet 2 tab PO Q6H PRN (Reason: Pain) RF: 0 Discharge Orders: Discharge Order (Routine); Ordered 02/06/20 Ordered By: Kirby Mcbride Discharge Diet: Advance as tolerated Discharge Activity: Increase activity as tolerated Patient Instructions: Pre-eclampsia and Eclampsia (ED) Activity Restrictions/Additional Instructions: Check your blood pressure twice daily. If blood pressures are remaining above 140/90, you may take the medication prescribed. Do not take the medication if your blood pressure is not over 140/90. Follow-up with your doctor regarding your blood pressure this next week. Return for mental status changes, worsening blood pressure despite treatment, fever greater than 100, vomiting liquids or medications, other concerning symptoms. Discharge Date/Time: 02/06/20 23:09 Coding Level of Care Code ED Pin Feather Machine Operator for Danielle Walden
== END 2020-02-06 23:09 | disposition home or self-care (01) ==
PROVIDERS: Emergency Provider Emergency Medicine
DX: O86.22 Infection of bladder following delivery (principal); O14.05 Mild to moderate pre-eclampsia, complicating the puerperium; F17.210 Nicotine dependence, cigarettes, uncomplicated
CPT/HCPCS: 12345; 80053; 81001; 85025; 99282

== ENCOUNTER 2020-10-29 12:26 | Emergency (ER) | payer MEDICAID, SELFPAY ==
[2020-10-29 13:06] VITALS: BP 122/61; PULSE 89; RESP 18; TEMP 37.1; O2SAT 98; BMI 36.8
--- NOTE | 2020-10-29 13:52 | ED_ITS ---
HPI - Nausea/Vomiting/Diarrhea General: Chief complaint: Nausea/Vomiting/Diarrhea Stated complaint: POSS UTI, (UNSURE HOW FAR ALONG) Time Seen by Provider: 10/29/20 13:38 History of Present Illness: HPI Narrative: 25-year-old female presents emergency room with complaints of nausea and vomiting. She is not been able to keep any medications down last couple of days she thinks she may have a UTI she has had some of this urea. Denies any other issues no fever. MD elicited complaint: nausea and vomiting Onset (ago): day(s) Description of vomiting: food contents and watery Associated nausea: Yes Associated abdominal pain: No Severity: moderate Quality: cramping Exacerbating factors: eating Relieving factors: none Associated symtoms: Reports nausea; Denies chest pain, dysuria, fatigue or malaise Review of Systems Const: Denies: fever(s), chills, body aches, change in appetite, fatigue or malaise ENMT: Denies: throat pain, ear or mastoid pain, nasal discharge or nasal congestion Card: Denies: chest pain, edema, dyspnea on exertion or orthopnea Resp: Denies: dyspnea, productive cough or non-productive cough GI: Reports: nausea : Denies: flank pain, difficulty voiding, dysuria, urinary frequency or urinary urgency Skin/Breast: Denies: rash or pruritus PFSH ED PFSH: Medical History Anxiety Surgical History History of cholecystectomy (07/20/11) Laparoscopic. Performed by Dr. Loaiza at [facility] [place]. Family History Grandfather Heart disease MATERNAL Diabetes Maternal Father No problems noted. Family/Other Stomach cancer Maternal uncle Breast cancer Maternal aunt Diabetes Maternal uncle Mother Multiple sclerosis Social History Smoking and tobacco status: current every day smoker cigarettes Packs smoked per day: 1 [ Other cigarette details: Started age 13. ] Alcohol intake: never Physical Exam Const: COMMON NORMALS: no acute distress GENERAL APPEARANCE: cooperative and comfortable ORIENTATION/CONSCIOUSNESS: Yes awake, Yes oriented to person, Yes oriented to place and Yes oriented to time HENMT: COMMON NORMALS: normocephalic, atraumatic and hearing grossly normal bilaterally HEAD & SCALP: normocephalic and atraumatic Neck/C-Spine: COMMON NORMALS: no JVD Resp: COMMON NORMALS: normal respiratory effort, No retractions, No use of accessory muscles and clear to auscultation bilaterally AUSCULTATION: clear to auscultation bilaterally Cardio: COMMON NORMALS: no JVD, regular rate, regular rhythm and No murmurs present (Cardio) RATE: regular rate RHYTHM: regular rhythm GI: COMMON NORMALS: Soft to palpation and No hepatosplenomegaly present AUSCULTATION: Yes normoactive bowel sounds PALPATION: Yes Soft to palpation, No Tenderness to palpation present (GI), No Guarding due to palpation present (GI) and Yes No hepatosplenomegaly present Extremity: COMMON NORMALS: normal to inspection, capillary refill normal, no clubbing, cyanosis or edema, no calf tenderness and no pedal edema Neuro: SENSORIUM/ORIENTATION: Yes oriented to person, Yes oriented to place and Yes oriented to time Skin: COMMON NORMALS: no rashes or lesions noted GENERAL SKIN EXAM: no rashes or lesions noted Course Vital Signs: Vital signs: Vital Signs Temperature 98.7 F 10/29/20 13:06 Pulse Rate 89 10/29/20 13:06 Respiratory Rate 18 10/29/20 13:06 Blood Pressure 122/61 10/29/20 13:06 Pulse Oximetry 98 10/29/20 13:06 MDM - Nausea/Vomiting/Diarrhea MDM Narrative: Medical decision making narrative: test positive discussed with the patient give her vitamins with promethazine. Clear liquid diet today then advance as tolerated also discussed using Unisom and B6. Follow-up to establish with OB. Lab Data: Labs: Lab Results 10/29/20 10/29/20 10/29/20 Range/Units 13:35 14:15 14:15 WBC 13.7 H (4.0-10.0) 10^3/ uL RBC 4.92 (4.1-5.3) 10^6/u L Hgb 13.7 (11.5-15.3) g/dL Hct 41.1 (37.0-47.0) % MCV 83.5 (81-99) fL MCH 27.8 L (28.0-34.0) pg MCHC 33.3 (30.0-36.0) g/dL RDW 12.5 (12.1-15.1) % Plt Count 334 (130-400) 10^3/c mm MPV 9.7 (7.4-10.4) fL Neut % (Auto) 68.3 % Lymph % (Auto) 20.4 % [place]berry % (Auto) 7.4 % Eos % (Auto) 2.9 % Baso % (Auto) 0.4 % Neut # (Auto) 9.34 H (1.8-7.7) 10^3/u L Lymph # (Auto) 2.8 (0.8-4.8) 10^3/u L [place]berry # (Auto) 1.0 H (0.2-0.9) 10^3/u L Eos # (Auto) 0.4 (0.0-0.8) 10^3/u L Baso # (Auto) 0.1 (0.0-0.1) 10^3/u L Nucleated RBC % (a uto) 0 % Nucleated RBCs # 0.0 /100WBC Sodium 136 (136-145) mmol/L Potassium 4.2 (3.5-5.1) mmol/L Chloride 100 (98-107) mmol/L Carbon Dioxide 27 (22-29) mmol/L Anion Gap 13.2 (5-19) BUN 11 (6-20) mg/dL Creatinine 0.5 (0.5-0.9) mg/dL GFR Calculation 149.1 H (90-130) mL/min Glucose 89 (65-115) mg/dL Calculated Osmolal ity 281 L (285-295) mOsm/k g Calcium 8.8 (8.5-10.5) mg/dL Total Bilirubin 0.3 (0.15-1.2) mg/dL AST 16 (0-32) U/L ALT 37 H (0-33) U/L Alkaline Phosphata se 114 H (35-105) IU/L Total Protein 7.0 (6.6-8.7) g/dL Albumin 4.1 (3.5-5.2) g/dL Globulin 2.9 (1.3-4.6) g/dL HCG, Qual (Negative) Urine Color Yellow (Yellow) Urine Appearance Sl hazy (CLEAR) Urine pH 5 (5-7) Ur Specific Gravit y 1.020 (1.005-1.030) Urine Protein Neg (Negative) Urine Glucose (UA) Norm (Normal) Urine Ketones Negative (Negative) Urine Blood Neg (Negative) Urine Nitrate Negative (Negative) Urine Bilirubin Neg (Negative) Urine Urobilinogen 1 H (Negative) mg/dL Ur Leukocyte Trang ase Negative (Negative) Urine RBC None (0-2) /hpf Urine WBC 0-4 H (0-5) /hpf Ur Squamous Epith Cells 5-10 H (0-5) /hpf Amorphous Sediment Not Reportable Urine Bacteria 3+ H (NONE) /hpf 10/29/20 Range/Units 14:15 WBC (4.0-10.0) 10^3/ uL RBC (4.1-5.3) 10^6/u L Hgb (11.5-15.3) g/dL Hct (37.0-47.0) % MCV (81-99) fL MCH (28.0-34.0) pg MCHC (30.0-36.0) g/dL RDW (12.1-15.1) % Plt Count (130-400) 10^3/c mm MPV (7.4-10.4) fL Neut % (Auto) % Lymph % (Auto) % [place]berry % (Auto) % Eos % (Auto) % Baso % (Auto) % Neut # (Auto) (1.8-7.7) 10^3/u L Lymph # (Auto) (0.8-4.8) 10^3/u L [place]berry # (Auto) (0.2-0.9) 10^3/u L Eos # (Auto) (0.0-0.8) 10^3/u L Baso # (Auto) (0.0-0.1) 10^3/u L Nucleated RBC % (a uto) % Nucleated RBCs # /100WBC Sodium (136-145) mmol/L Potassium (3.5-5.1) mmol/L Chloride (98-107) mmol/L Carbon Dioxide (22-29) mmol/L Anion Gap (5-19) BUN (6-20) mg/dL Creatinine (0.5-0.9) mg/dL GFR Calculation (90-130) mL/min Glucose (65-115) mg/dL Calculated Osmolal ity (285-295) mOsm/k g Calcium (8.5-10.5) mg/dL Total Bilirubin (0.15-1.2) mg/dL AST (0-32) U/L ALT (0-33) U/L Alkaline Phosphata se (35-105) IU/L Total Protein (6.6-8.7) g/dL Albumin (3.5-5.2) g/dL Globulin (1.3-4.6) g/dL HCG, Qual Positive H (Negative) Urine Color (Yellow) Urine Appearance (CLEAR) Urine pH (5-7) Ur Specific Gravit y (1.005-1.030) Urine Protein (Negative) Urine Glucose (UA) (Normal) Urine Ketones (Negative) Urine Blood (Negative) Urine Nitrate (Negative) Urine Bilirubin (Negative) Urine Urobilinogen (Negative) mg/dL Ur Leukocyte Trang ase (Negative) Urine RBC (0-2) /hpf Urine WBC (0-5) /hpf Ur Squamous Epith Cells (0-5) /hpf Amorphous Sediment Urine Bacteria (NONE) /hpf Discharge Plan Discharge Patient Disposition: Home Clinical Impression: Hyperemesis gravidarum Condition: Stable Prescriptions: New promethazine 25 mg tablet 25 mg PO Q6H PRN (Reason: nausea and vomiting) Qty: 20 RF: 0 PNV 29-1 29 mg iron- 1 mg tablet 1 tab PO DAILY Qty: 90 RF: 0 Discharge Orders: Discharge ED (Routine); Ordered 10/29/20 Ordered By: Garcia Hutchison Discharge Diet: Advance as tolerated Discharge Activity: Increase activity as tolerated Patient Instructions: Opioid Safety Activity Restrictions/Additional Instructions: Follow-up to establish with an [employer] web[employer] portal developer as soon as you are able Coding Level of Care Code ED Web Marketing Assistant for Danielle Walden
[2020-10-29 14:12] LABS: Bilirubin Urine Neg (Negative); Blood Urine Neg (Negative); Glucose Urine UA Norm (Normal); Ketones Urine Negative (Negative); Leukocyte Esterase Urine Negative (Negative); Nitrate Urine Negative (Negative); Protein Urine Neg (Negative); Urine Appearance SL Hazy (CLEAR); Urine Color Yellow (Yellow); Urobilinogen Urine 1 mg/dL (Negative); pH Urine 5 (5-7)
[2020-10-29 14:13] LABS: Bacteria Urine 3+ /hpf
[2020-10-29 14:15] LABS: Add Urine Culture? No; WBC Urine 0-4 /hpf (0-5)
[2020-10-29] MEDS: sodium chloride 0.9% 1,000 ML 999 ML IV ×2 (14:20→14:21)
[2020-10-29] MEDS: promethazine 25 mg/mL SDV 1 mL IM (14:21)
[2020-10-29 14:22] LABS: Basophils # 0.1 10^3/uL (0.0-0.1); Basophils % 0.4 %; Eosinophils # 0.4 10^3/uL (0.0-0.8); Eosinophils % 2.9 %; Hematocrit 41.1 % (37.0-47.0); Hemoglobin 13.7 g/dL (11.5-15.3); Lymphocytes # 2.8 10^3/uL (0.8-4.8); Lymphocytes % 20.4 %; Mean Corpuscular HGB Conc 33.3 g/dL (30.0-36.0); Mean Corpuscular Hemoglobin 27.8 pg (28.0-34.0); Mean Corpuscular Volume 83.5 fL (81-99); Mean Platelet Volume 9.7 fL (7.4-10.4); Monocytes % 7.4 %; Neutrophils # 9.34 10^3/uL (1.8-7.7); Neutrophils % 68.3 %; Nucleated Red Blood Cells % 0 %; Platelet Count 334 10^3/cmm (130-400); Red Blood Count 4.92 10^6/uL (4.1-5.3); Red Cell Distribution Width 12.5 % (12.1-15.1); White Blood Count 13.7 10^3/uL (4.0-10.0)
[2020-10-29 14:36] LABS: HCG, Serum Qual Positive (Negative)
[2020-10-29 14:51] LABS: Alanine Aminotransferase 37 U/L (0-33); Albumin Level 4.1 g/dL (3.5-5.2); Alkaline Phosphatase 114 IU/L (35-105); Anion Gap 13.2 (5-19); Aspartate Amino Transferase 16 U/L (0-32); Blood Urea Nitrogen 11 mg/dL (6-20); Calcium 8.8 mg/dL (8.5-10.5); Carbon Dioxide 27 mmol/L (22-29); Chloride 100 mmol/L (98-107); Globulin 2.9 g/dL (1.3-4.6); Glomerular Filtration Rate 149.1 mL/min (90-130); Glucose 89 mg/dL (65-115); Osmolality Calculated 281 mOsm/kg (285-295); Potassium 4.2 mmol/L (3.5-5.1); Sodium 136 mmol/L (136-145); Total Bilirubin 0.3 mg/dL (0.15-1.2)
== END 2020-10-29 16:13 | disposition home or self-care (01) ==
PROVIDERS: Emergency Provider Family Medicine
DX: O21.0 Mild hyperemesis gravidarum (principal); O99.330 Smoking (tobacco) complicating pregnancy, unspecified trimester; F17.210 Nicotine dependence, cigarettes, uncomplicated; Z3A.00 Weeks of gestation of pregnancy not specified
CPT/HCPCS: 80053; 81001; 84703; 85025; 96360; 96361; 96372; 99283; J2550; J7030

== ENCOUNTER → 2020-11-04 13:27 | Outpatient (BNVA) | payer MEDICAID, SELFPAY | PROVIDERS: Visit Provider Nurse Practitioner Women's Health | DX: O21.0 Mild hyperemesis gravidarum (principal); O09.291 Supervision of pregnancy with other poor reproductive or obstetric history, first trimester; O09.899 Supervision of other high risk pregnancies, unspecified trimester; O99.331 Smoking (tobacco) complicating pregnancy, first trimester; O21.9 Vomiting of pregnancy, unspecified | CPT/HCPCS: 84315; 87077; 87086; 87184 ==

== ENCOUNTER → 2020-11-09 15:00 | Outpatient (BNVA) | payer MEDICAID, SELFPAY | PROVIDERS: Visit Provider Obstetrics & Gynecology | DX: O09.291 Supervision of pregnancy with other poor reproductive or obstetric history, first trimester (principal); O99.331 Smoking (tobacco) complicating pregnancy, first trimester; O21.9 Vomiting of pregnancy, unspecified | CPT/HCPCS: 80307; 84315; 85025; 86592; 86762; 86803; 86850; 86900; 87086; 87340; 87522 ==

== ENCOUNTER → 2020-12-06 13:29 | Outpatient (BNVA) | payer MEDICAID, SELFPAY | PROVIDERS: Visit Provider Obstetrics & Gynecology | DX: O09.291 Supervision of pregnancy with other poor reproductive or obstetric history, first trimester (principal); O99.331 Smoking (tobacco) complicating pregnancy, first trimester; O21.9 Vomiting of pregnancy, unspecified | CPT/HCPCS: 84315; 88175 ==

== ENCOUNTER → 2020-12-29 09:25 | Outpatient (BNVA) | payer MEDICAID, SELFPAY | PROVIDERS: Visit Provider Nurse Practitioner Women's Health | DX: O09.899 Supervision of other high risk pregnancies, unspecified trimester (principal); O23.42 Unspecified infection of urinary tract in pregnancy, second trimester; O21.0 Mild hyperemesis gravidarum; O09.291 Supervision of pregnancy with other poor reproductive or obstetric history, first trimester; O99.331 Smoking (tobacco) complicating pregnancy, first trimester; F17.200 Nicotine dependence, unspecified, uncomplicated; O21.9 Vomiting of pregnancy, unspecified; Z3A.00 Weeks of gestation of pregnancy not specified | CPT/HCPCS: 84315; 87086; 87491; 87591 ==

== ENCOUNTER 2021-03-21 17:47 | Outpatient (CLI) | payer MEDICAID, SELFPAY ==
[2021-03-21 19:25] LABS: Total Volume, Urine 650 mL
[2021-03-21 19:40] LABS: Urine Total Protein 20.3 mg/24HR (0-150)
== END 2021-03-21 17:48 | disposition home or self-care (01) ==
LOC: LAB 17:55
PROVIDERS: Visit Provider Obstetrics & Gynecology
DX: Z01.89 Encounter for other specified special examinations (principal)
CPT/HCPCS: 84156

== ENCOUNTER → 2021-03-24 10:02 | Outpatient (BNVA) | payer MEDICAID, SELFPAY | PROVIDERS: Visit Provider Obstetrics & Gynecology | DX: O09.899 Supervision of other high risk pregnancies, unspecified trimester (principal) | CPT/HCPCS: 82950; 84315; 85025 ==

== ENCOUNTER → 2021-05-19 10:14 | Outpatient (BNVA) | payer MEDICAID, SELFPAY | PROVIDERS: Visit Provider Obstetrics & Gynecology | DX: O09.899 Supervision of other high risk pregnancies, unspecified trimester (principal) | CPT/HCPCS: 84315; 87081 ==

== ENCOUNTER 2021-06-02 20:17 | Emergency (ER) | payer MEDICAID, SELFPAY ==
--- NOTE | 2021-06-02 20:52 | XRR_ITS ---
PROCEDURE INFORMATION: Exam: XR Chest Exam date and time: 06/02/2021 8:52 PM Age: 26 years old Clinical indication: Cough TECHNIQUE: Imaging protocol: XR of the chest. Views: 1 view. COMPARISON: CR Chest 2 views* [id number] 06/06/2017 1:29 AM FINDINGS: Lungs: Unremarkable. No consolidation. Pleural spaces: Unremarkable. No pleural effusion. No pneumothorax. Heart/Mediastinum: Unremarkable. No cardiomegaly. Bones/joints: Unremarkable. XR/XR chest 1V portable [id number] IMPRESSION: No acute findings. Radiation Dose CTDIVOL = (mGy): DLP = (mGy-cm)
[2021-06-02 21:30] VITALS: BP 135/91; PULSE 92; RESP 22; TEMP 36.8; O2SAT 97; BMI 37.9
--- NOTE | 2021-06-03 01:40 | ED_ITS ---
HPI - URI/Sore Throat General: Chief Complaint: Upper Respiratory Infection Stated Complaint: Upper respiration Infection Time Seen by Provider: 06/03/21 01:39 History of Present Illness: HPI Narrative: Patient is a 38 weeks 26-year-old female comes to the ED for upper respiratory symptoms. Patient says she has had a cough for approximately 1 week and has been taking Z-Albert and 6 last dose tomorrow and has not had any improvement in cough. She used an albuterol inhaler at home and is still having cough and some wheezing. She denies any fever, nausea or vomiting. Patient says baby is doing fine and she had a checkup on Sunday and everything was normal. movements have been normal. She denies any vaginal bleeding or acute abdominal pain. Associated symptoms: Deny abdominal pain, chills, chest pain, diarrhea, fever(s), headache(s), nasal congestion, nausea or vomiting Review of Systems Const: Denies: fever(s), chills or fatigue Eyes: Denies: change in vision or eye discomfort ENMT: Denies: throat pain, odynophagia, nasal discharge or nasal congestion Card: Denies: chest pain, palpitations, edema, swelling of feet/ankles, dyspnea on exertion or orthopnea Resp: Reports: non-productive cough and wheezing; Denies: dyspnea or productive cough GI: Denies: abdominal pain, nausea, vomiting, diarrhea, constipation or hematochezia : Denies: flank pain, dysuria or hematuria Musc: Denies: neck pain, back pain or extremity swelling Skin/Breast: Denies: rash or new lesions Neuro: Denies: headache(s), numbness in extremities or weakness in extremities PFSH ED PFSH: Medical History Anxiety No pertinent past medical history denies hx: thyroid, dm, DVT/PE PCP: none Tobacco dependence Surgical History History of cholecystectomy (07/20/11) Laparoscopic[place] [facility] [place] History Grandfather Heart disease MATERNAL Diabetes Maternal CHF (congestive heart failure) Maternal Hypertension Maternal Father Hypertension Family/Other Stomach cancer Maternal uncle Breast cancer Maternal aunt Diabetes Maternal uncle Mother Multiple sclerosis Other Hyperlipidemia Denies family history of Colon cancer Ovarian cancer Hypercholesteremia Lung disease Uterine cancer Thyroid disease Physical Exam Const: COMMON NORMALS: no acute distress, patient oriented x3 and alert GENERAL APPEARANCE: cooperative and comfortable HENMT: COMMON NORMALS: normocephalic HEAD & SCALP: normocephalic MOUTH: Normal oral and palatal mucosa present THROAT: posterior oropharynx normal and uvula midline Neck/C-Spine: COMMON NORMALS: supple GENERAL: Yes normal visual inspection Resp: COMMON NORMALS: normal respiratory effort, No retractions and No use of accessory muscles AUSCULTATION: wheezes expiratory wheezes and throughout Cardio: COMMON NORMALS: regular rate, regular rhythm, S1 normal heart sound present, S2 normal heart sound present, No gallops present (Cardio), No clicks present (Cardio), No murmurs present (Cardio) and Peripheral pulses 2+ throughout RATE: regular rate RHYTHM: regular rhythm HEART SOUNDS: S1 normal heart sound present and S2 normal heart sound present PERIPHERAL PULSES: Peripheral pulses 2+ throughout GI: COMMON NORMALS: Normal to inspection, nondistended, normoactive bowel sounds present, Soft to palpation, non-tender and no masses INSPECTION: Yes gravid abdomen PALPATION: Yes Soft to palpation : COMMON NORMALS: Yes no CVA tenderness BLADDER/KIDNEY EXAM: Yes no CVA tenderness Back/Pelvis: COMMON NORMALS: no CVA tenderness Extremity: COMMON NORMALS: normal to inspection Neuro: COMMON NORMALS: patient oriented x3 and moves all extremities SENSORIUM/ORIENTATION: Yes alert Skin: GENERAL SKIN EXAM: dry skin Course ED course: Doppler used? heart rate detected at around 120 bpm. Vital Signs: Vital signs: Vital Signs Temperature 98.2 F 06/02/21 21:30 Pulse Rate 82 06/03/21 02:42 Respiratory Rate 20 H 06/03/21 02:42 Blood Pressure 129/82 06/03/21 02:42 Pulse Oximetry 98 06/03/21 02:42 MDM - URI/Sore Throat MDM Narrative: Medical decision making narrative: Patient is a 38 weeks 26-year-old female comes to the ED with cough and some wheezing. She was recently diagnosed with bronchitis on May 30 and sent home with a Z- Albert. She has 1 more dose left and she still having cough and wheezing. She has been having a cough for the past week. Denies any fever, nausea/vomiting, abdominal pain or vaginal bleeding. Patient says she has no OB complaints and movement has been normal. Vitals stable. Exam shows bilateral expiratory wheezing. Doppler used and heart rate detected at 120 bpm. Influenza and Covid negative. Chest x-ray shows no acute findings. Patient was given a DuoNeb breathing treatment while here in the ED. She was discharged home with a prescription for amoxicillin and diagnosed with bronchitis. She was told to follow-up with her OB next scheduled appointment. Return to ED precautions given. She was also instructed to continue using her previously prescribed albuterol inhaler as needed for any shortness of breath or wheezing. Patient understood agree with plan. Lab Data: Attestation: I reviewed the patient's lab results. Labs: Lab Results 06/03/21 06/03/21 01:55 01:55 Influenza Type A A g Negative (Negative) Influenza Type B A g Negative (Negative) SARS-CoV-2 Ag (Rap id) Negative (Negative) Imaging Data^: CXR: Attestation: I personally reviewed and interpreted this imaging study as follows: Radiologist's impression: [address] [address]THgc ReportSigned Patient: Neelima Browning #: [id number]: 1995Acct#:[id number]/Sex: 26 / FADM Date: 06/02/21Loc: [facility]/Bed:Attending Dr: Ordering Provider/Ordering MD: Kulwant Ryan MD Date of Service: 06/02/21 Procedure(s): XR chest 1V portable 20009 Accession Number(s): [id number] Report Number: [id number] PROCEDURE INFORMATION: Exam: XR Chest Exam date and time: 06/02/2021 8:52 PM Age: 26 years old Clinical indication: Cough TECHNIQUE: Imaging protocol: XR of the chest. Views: 1 view. COMPARISON: CR Chest 2 views* [id number] 06/06/2017 1:29 AM FINDINGS: Lungs: Unremarkable. No consolidation. Pleural spaces: Unremarkable. No pleural effusion. No pneumothorax. Heart/Mediastinum: Unremarkable. No cardiomegaly. Bones/joints: Unremarkable. XR/XR chest 1V portable [id number] IMPRESSION: No acute findings. Radiation Dose CTDIVOL = (mGy): DLP = (mGy-cm) Dictated By:Mu Ridley By:Mu Ridley Date/Time:06/02/212157DD/ 51 Discharge Plan Discharge Patient Disposition: Home Clinical Impression: Bronchitis Condition: Stable Prescriptions: New amoxicillin 500 mg tablet 500 mg PO BID 10 Days Qty: 20 RF: 0 No Action guaifenesin [Adult Tussin Chest Congestion] 100 mg/5 mL liquid 200 mg PO Q4H PRNRF: 0 omeprazole 20 mg capsule,delayed release(DR/EC) 20 mg PO DAILY RF: 0 albuterol sulfate [Ventolin HFA] 90 mcg/actuation HFA aerosol inhaler 2 puff inhalation Q6H PRN (Reason: shortness of breath or wheezing) Qty: 8.5 RF: 0 azithromycin 250 mg tablet See Rx Instructions PO .COMPLEX Qty: 6 RF: 0 albuterol sulfate 90 mcg/actuation HFA aerosol inhaler 2 puff inhalation QID PRN (Reason: shortness of breath or wheezing) Qty: 8.5 RF: 2 PNV 29-1 29 mg iron- 1 mg tablet 1 tab PO DAILY Qty: 90 RF: 0 Discharge Orders: Discharge ED (Routine); Ordered 06/03/21 Ordered By: Tera Raines Discharge Diet: Regular Discharge Activity: Resume usual activity Patient Instructions: Acute Bronchitis (ED) Activity Restrictions/Additional Instructions: Follow-up with medical provider as directed at your next scheduled OB appointment. Take medications as prescribed. Continue using your at-home inhaler as needed for any shortness of breath or wheezing. Return to the ER or your medical provider if condition worsens. Please read and understand discharge instructions. Thank you for choosing [facility] for your healthcare needs today. Please realize this is an emergency room and that we are providing you with a medical screening exam and this may not be complete and all inclusive of all the testing and or work up that you may need to determine your ailment or severity of your illness. It is very important that you follow up as instructed or that you return to the Emergency Department should you have concerns or if your condition changes or worsens in any way. Coding Level of Care Code ED Railroad Dispatcher for Chg Fwd Exam Comprehensive
[2021-06-03 02:20] VITALS: BP 129/84; PULSE 93; RESP 18; O2SAT 97
[2021-06-03 02:31] VITALS: PULSE 86; RESP 18; O2SAT 97
[2021-06-03 02:42] VITALS: BP 129/82; PULSE 82; RESP 20; O2SAT 98
[2021-06-03 02:46] LABS: Influenza A by IFA Negative (Negative); Influenza B by IFA Negative (Negative); SARS Covid-2 Antigen Negative (Negative)
== END 2021-06-03 02:42 | disposition home or self-care (01) ==
PROVIDERS: Emergency Medicine; Emergency Provider Physician Assistant
DX: J40 Bronchitis, not specified as acute or chronic (principal); Z20.822 Contact with and (suspected) exposure to COVID-19
CPT/HCPCS: 71045; 87426; 87804; 94640; 99283

== ENCOUNTER 2021-06-09 14:00 | Outpatient (CLI) | payer MEDICAID, SELFPAY ==
[2021-06-09 14:23] VITALS: BP 132/82; PULSE 96; TEMP 36.2
[2021-06-09 14:27] VITALS: RESP 17; TEMP 36.3
[2021-06-09 14:40] LABS: Actim Prom Negative
[2021-06-09 14:42] LABS: Nitrazine Paper, PH Negative
[2021-06-09 14:53] VITALS: BP 128/81; PULSE 96
[2021-06-09 15:24] VITALS: BP 119/68; PULSE 88
[2021-06-09 15:54] VITALS: BP 116/67; PULSE 87
[2021-06-09 16:10] VITALS: BP 116/67; PULSE 87
== END 2021-06-09 16:10 | disposition home or self-care (01) ==
LOC: OPOB 14:05 → OBGYN 14:07
PROVIDERS: Visit Provider Obstetrics & Gynecology
DX: O09.899 Supervision of other high risk pregnancies, unspecified trimester (principal); N89.8 Other specified noninflammatory disorders of vagina; Z20.822 Contact with and (suspected) exposure to COVID-19
CPT/HCPCS: 59025; 83986; 84112; 87635; 99211

== ENCOUNTER → 2021-06-13 14:40 | Outpatient (BNVA) | payer MEDICAID, SELFPAY | PROVIDERS: Visit Provider Obstetrics & Gynecology | DX: O09.899 Supervision of other high risk pregnancies, unspecified trimester (principal) | CPT/HCPCS: 84315; 87086 ==

== ENCOUNTER 2021-06-14 12:37 | Inpatient (IN) | payer MEDICAID, SELFPAY ==
[2021-06-14] VITALS (43 sets, daily range): BP systolic 103–133; BP diastolic 57–84; PULSE 80–121; TEMP 36.1; O2SAT 97–98; BMI 38.7
[2021-06-14 13:20] LABS: Basophils % 0.3 %; Eosinophils # 0.3 10^3/uL (0.0-0.8); Eosinophils % 1.8 %; Hematocrit 31.6 % (37.0-47.0); Hemoglobin 10.3 g/dL (11.5-15.3); Lymphocytes # 1.7 10^3/uL (0.8-4.8); Lymphocytes % 10.9 %; Mean Corpuscular HGB Conc 32.6 g/dL (30.0-36.0); Mean Corpuscular Hemoglobin 26.4 pg (28.0-34.0); Mean Platelet Volume 10.1 fL (7.4-10.4); Monocytes # 1.2 10^3/uL (0.2-0.9); Monocytes % 7.4 %; Neutrophils % 78.6 %; Nucleated Red Blood Cells % 0 %; Platelet Count 298 10^3/cmm (130-400); Red Cell Distribution Width 13.7 % (12.1-15.1); White Blood Count 15.5 10^3/uL (4.0-10.0)
[2021-06-14] MEDS: oxytocin 30 UNIT/500 ML BAG IV (13:52)
[2021-06-14] MEDS: dextrose 5%-lactated ringers 1,000 ML 125 ML IV ×2 (13:52→19:08)
[2021-06-14] MEDS: ampicillin 2,000 MG in sodium chloride 0.9% (plus) 50 ML 100 MG IV (13:52)
[2021-06-14] MEDS: ampicillin 1,000 MG in sodium chloride 0.9% (plus) 50 ML 100 MG IV ×2 (17:36→21:47)
--- NOTE | 2021-06-14 17:41 | PM.OPHPUD ---
Labor & Delivery H&P Update Date of Procedure: June 14, 2021 Date H&P Performed: 06/13/21 H&P update information: I have reviewed H&P completed within last 30 days, I have examined patient prior to procedure and No changes to prior documentation Changes to previous documentation: The patient presents for induction at term. Admission Diagnosis: Preop diagnosis: IUP @ 39w6d Related Problem List Diagnoses (1) Hepatitis C antibody positive in blood: (2) Supervision of other high-risk : (3) Tobacco use in :
[2021-06-14] MEDS: lactated ringers 1,000 ML 999 ML IV (17:48)
--- NOTE | 2021-06-14 18:34 | ANES.PREANE2 ---
Pre-Anesthetic Assessment Pre-Anesthetic Assessment: Height/Weight: Height 1.75 m Weight 118.841 kg Temp Pulse BP Pulse Ox 97.0 F L 84 125/70 97 06/14/21 12:56 06/14/21 18:30 06/14/21 18:30 06/14/21 18:25 Preop Diagnosis: IUP @ 39w6d Was Beta Juan Pablo taken within 24 hours: N/A Was Clonidine taken within 24 hours: N/A Social: Social History: Tobacco and No alcohol Exam: Pre-Anes Outpt Exam: alert and oriented x 3 Airway: Submandibular: WNL Cervical ROM: WNL MP: 2 Pulmonary: Pulmonary: None reported CV/HEM: CV/HEM: None reported : : None reported Hepatic: Hepatic: None reported GI: GI: GERD Metabolic: Metabolic: None reported Musc/skel: Musc/skel: Lower Back Pain Neuropsych: Neuropsych: None reported Anesthetic Plan: ASA status: 2 Risk of > 500 ml blood loss (7ml/kg in children): No Meds/Allergies Current Medications: Current Medications Generic Name Dose Route Start Last Admin Trade Name Freq PRN Reason Stop Dose Admin Dextrose/Lactated Ringer's 1,000 mls @ 125 m ls/hr 06/14/21 12:45 06/14/21 13:52 Dextrose 5%-Lact ated Ringers IV 125 mls/hr .Q8H RAÚL Administration Ampicillin Sodium 1,000 mg/ 50 mls @ 100 mls/ hr 06/14/21 17:30 06/14/21 17:36 Sodium Chloride IV 100 mls/hr Q4H RAÚL Administration Protocol Oxytocin 30 unit in 500 ml s @ 1 mls/hr 06/14/21 13:30 06/14/21 16:00 Pitocin IV 10 milliunit/min .Q24H RAÚL 10 mls/hr Titration Protocol 1 MILLIUNIT/MIN Ropivacaine 200 mg in 100 mls @ 13 mls/hr 06/14/21 17:45 06/14/21 17:48 Naropin Premix EPIDURAL 13 mls/hr .Q7H42M RAÚL Administration Lactated Ringer's 1,000 mls @ 999 m ls/hr 06/14/21 17:31 06/14/21 17:48 Lactated Ringers IV 999 mls/hr .Q1H1M PRN Administration See label comment s PFSH Anesthesia PFSH: Medical History Anxiety No pertinent past medical history denies hx: thyroid, dm, DVT/PE PCP: none Tobacco dependence Surgical History History of cholecystectomy (07/20/11) Laparoscopic. [place] [facility] [place] Family History Grandfather Heart disease MATERNAL Diabetes Maternal CHF (congestive heart failure) Maternal Hypertension Maternal Father Hypertension Family/Other Stomach cancer Maternal uncle Breast cancer Maternal aunt Diabetes Maternal uncle Mother Multiple sclerosis Other Hyperlipidemia Denies family history of Colon cancer Ovarian cancer Hypercholesteremia Lung disease Uterine cancer Thyroid disease Female Reproductive History: : 7 Data Anesthesia CBC & Chem 7: 06/14/21 12:50 Other Labs: Laboratory Results - last 48 hr 06/14/21 12:50 WBC 15.5 H RBC 3.90 L Hgb 10.3 L Hct 31.6 L MCV 81.0 MCH 26.4 L MCHC 32.6 RDW 13.7 Plt Count 298 MPV 10.1 Neut % (Auto) 78.6 Lymph % (Auto) 10.9 [place] % (Auto) 7.4 Eos % (Auto) 1.8 Baso % (Auto) 0.3 Neut # (Auto) 12.20 H Lymph # (Auto) 1.7 [place] # (Auto) 1.2 H Eos # (Auto) 0.3 Baso # (Auto) 0.0 Nucleated RBC % (auto) 0 Nucleated RBCs # 0.0 Cardiac Studies: No Data to Display
--- NOTE | 2021-06-14 18:36 | ANES.PROC ---
Anesthesia Procedures Procedure/Date: 06/14/21 Epidural: Time Out Performed: Yes Consents Signed: Procedure Consent Consent: from patient Lumbar Level: L4-L5 Epidural position: sitting Epidural procedure: sterile prep of area, 1% lidocaine to numb the area, negative for paresthesia passed, test dose given, 1.5% xylocaine 1:200k epi, placed PCEA, no systemic response, sterile dressing applied, L.U.D. no apparent complications and 0.2% Ropiavacaine @ mls/hr (13) Additional Comments: MATT at 9 cm catheter threaded to 15 cm
[2021-06-15] VITALS (37 sets, daily range): BP systolic 106–190; BP diastolic 62–86; PULSE 83–129; RESP 18; TEMP 36.4–36.9
[2021-06-15] MEDS: ampicillin 1,000 MG in sodium chloride 0.9% (plus) 50 ML 100 MG IV (02:19)
--- NOTE | 2021-06-15 04:52 | P.PCNOB_ITS ---
Delivery Note: Date of delivery: June 15, 2021 Pre-delivery diagnoses: iup@39w6d Post-delivery diagnoses: iup@40w0d delivered Procedure: Op report anesthesia: Epidural Delivering Physician: shelby Estimated blood loss (mL): 50 Findings: term female in the KEVON presentation Pre-Delivery Course: The patient was admitted for induction of labor at term. She had complete cervical dilation and began pushing. Delivery: The patient had complete cervical dilation and began to push. The head delivered in the KEVON position over an intact perineum under epidural anesthesia. The nose and mouth were bulb suctioned. The shoulders and body delivered atraumatically. The baby was placed onto the mother's abdomen. The cord was clamped and cut. Cord blood was obtained. The placenta delivered spontaneously. It was inspected and found to be intact. Inspection of the perineum revealed an intact perineum with no repair required.. Estimated blood loss 50 mL. Apgars on baby were 8 at 1 minute and 9 at 5 minutes. Weight of baby is pending. Mother and baby were stable post delivery. History History History 7 Term 2 Miscarriages/Ectopic 4 0 Living Children 2 A&P Assessment and plan (1) Hepatitis C antibody positive in blood: Status: Acute (2) Supervision of other high-risk : Status: Acute (3) Tobacco use in : Status: Acute Qualifiers: Trimester: first trimester Qualified Code(s): O99.331 - Smoking (tobacco) complicating , first trimester Coding Level of Care Code Acute Public Service Director for [facility] Fwd Diagnoses Hepatitis C antibody positive in blood R76.8 Supervision of other high-risk O09.899 Tobacco use in O99.331 Trimester: first trimester
[2021-06-15] MEDS: oxytocin 30 UNIT/500 ML BAG 125 UNIT IV (06:15)
[2021-06-15] MEDS: nicotine 14 mg Patch 1 PATCH TRANSDERMA (06:38)
[2021-06-15] MEDS: acetaminophen 325 mg Tablet 650 MG PO ×2 (06:53→13:04)
[2021-06-15] MEDS: ibuprofen 800 mg tablet PO ×3 (08:08→21:03)
[2021-06-15] MEDS: docusate sodium 100 mg Capsule PO ×2 (08:08→18:29)
--- NOTE | 2021-06-15 08:49 | PC.NURSE ---
Breast Assessment: Pt has blood blisters on both nipples. Pt denies pain
--- NOTE | 2021-06-15 08:59 | PC.NURSE ---
note: Discussed galatosemia with mom and dad, concerning a comment they made about their older child no longer following the galactosemia diet and this baby. They said the older child eats very little lactose containing food. Provided literature Galactosemia in Newborns and Caring for primary school children with Galactosemia . Mom asked for water to mix the soy formula they brought. Provided water to mix and store room is getting soy formula for them as well. Discussed pumping and bringing her milk in and if the galactosemia test are negative she can resume .
[2021-06-15] MEDS: HYDROcodone-acetaminophen 5-325 mg Tablet PO (09:06)
--- NOTE | 2021-06-15 12:37 | ANE.PACU2 ---
Inpatient post-anesthesia follow up: Airway intact: Yes Vital signs: Temperature 97.5 F Pulse Rate 83 Respiratory Rate 18 Blood Pressure 118/74 Pulse Oximetry 97 Oxygen Delivery Me thod Room Air Oxygen Flow Rate Fraction of Inspir ed Oxygen Hydration adequate: Yes Nausea and vomiting: No Pain level: 2 Mental status: Baseline
[2021-06-15 17:19] LABS: Hematocrit 31.3 % (37.0-47.0); Hemoglobin 10.2 g/dL (11.5-15.3); Mean Corpuscular HGB Conc 32.6 g/dL (30.0-36.0); Mean Corpuscular Hemoglobin 26.9 pg (28.0-34.0); Mean Corpuscular Volume 82.6 fl (81-99); Mean Platelet Volume 9.7 fL (7.4-10.4); Platelet Count 277 10^3/cmm (130-400); Red Blood Count 3.79 10^6/uL (4.1-5.3); Red Cell Distribution Width 13.4 % (12.1-15.1)
[2021-06-16 05:12] VITALS: BP 140/84; PULSE 91
[2021-06-16 08:00] VITALS: RESP 17
--- NOTE | 2021-06-16 09:31 | PM.DCS ---
Discharge Providers Date of Admission: 06/14/21 12:37 Date of Discharge: June 16, 2021 Attending Provider at Admission: Florida Stanley MD Attending Provider at Discharge: Florida Stanley MD Diagnoses at Discharge Discharge Diagnosis (1) Hepatitis C antibody positive in blood: Status: Acute (2) Supervision of other high-risk : Status: Acute (3) Tobacco use in : Status: Acute Qualifiers: Trimester: first trimester Qualified Code(s): O99.331 - Smoking (tobacco) complicating , first trimester Reason for Visit Reason for Visit: Induction Hospital Course Hospital Course The patient was admitted for induction at term. She had spontaneous delivery of a term female . She did well and was ready for discharge on day #1 Physical Exam Narrative: EXAM NARRATIVE: The patient has not concerns this am. She is bottle feeding. Const: COMMON NORMALS: no acute distress, patient oriented x3, no limitations, healthy appearing, alert and well nourished GENERAL APPEARANCE: cooperative, comfortable, well kempt and well developed ORIENTATION/CONSCIOUSNESS: Yes awake, Yes oriented to person, Yes oriented to place and Yes oriented to time Resp: COMMON NORMALS: normal respiratory effort EFFORT & INSPECTION: Yes able to speak in complete sentences GI: COMMON NORMALS: Soft to palpation and non-tender PALPATION: Yes Soft to palpation Extremity: COMMON NORMALS: no calf tenderness Neuro: COMMON NORMALS: patient oriented x3 SENSORIUM/ORIENTATION: Yes alert, Yes oriented to person, Yes oriented to place and Yes oriented to time Psych: APPEARANCE: Yes well kempt Urinary Catheter Management^: [place]: Cath Placed During This Visit: yes, but has since been removed by the nurse Reason for Continuing Indwelling Catheter: Decision to DC Catheter Urinary Catheter Date of Insertion: 06/14/21 Urinary Catheter Time of Insertion: 18:40 Date Urinary Catheter Removed: 06/15/21 Time Urinary Catheter Discontinued: 04:37 Discharge Data Data Completed and Pending: Labs from last 24 hours 06/15/21 17:07 WBC 18.0 H RBC 3.79 L Hgb 10.2 L Hct 31.3 L MCV 82.6 MCH 26.9 L MCHC 32.6 RDW 13.4 Plt Count 277 MPV 9.7 Vitals: Last Vital Signs Temp 97.5 F L 06/15/21 15:40 Pulse 91 06/16/21 05:12 Resp 17 06/16/21 08:00 BP 140/84 06/16/21 05:12 Pulse Ox 97 06/14/21 18:25 Discharge Plan Discharge Patient Disposition: Home Condition: Stable Prescriptions: Continued Proctofoam HC 1-1 % foam 1 applic TX QID RF: 0 omeprazole 20 mg capsule,delayed release(DR/EC) 20 mg PO DAILY RF: 0 albuterol sulfate [Ventolin HFA] 90 mcg/actuation HFA aerosol inhaler 2 puff inhalation Q6H PRN (Reason: shortness of breath or wheezing) Qty: 8.5 RF: 0 albuterol sulfate 90 mcg/actuation HFA aerosol inhaler 2 puff inhalation QID PRN (Reason: shortness of breath or wheezing) Qty: 8.5 RF: 2 PNV 29-1 29 mg iron- 1 mg tablet 1 tab PO DAILY Qty: 90 RF: 0 Discharge Orders: Discharge Order (Routine); Ordered 06/16/21 Ordered By: Florida Stanley Referrals: Florida Stanley MD [Physician] - 06/30/21 1:30 pm (Your 2 week post- appointment is scheduled for 06/30/21 @1:30. Your 6 week post- appointment is scheduled for 07/28/21 @9:15. ) Patient Instructions: Depression (DC), Bleeding (DC), Preeclampsia and Eclampsia After Delivery (GEN), OB Discharge Report, OB Food/Drug Interaction Guide, Opioid Safety, OB Home Care, OB Vaginal Deliveries - [facility] Discharge Attestations Time Spent in Discharge Care*: less than 30 min Quality Metrics Clinical Quality Measures During this hospital stay, did patient experience: None Coding Level of Care Code Acute Chg FW DC note Diagnoses Hepatitis C antibody positive in blood R76.8 Supervision of other high-risk O09.899 Tobacco use in O99.331 Trimester: first trimester
[2021-06-16 10:00] VITALS: TEMP 35.8
[2021-06-16 10:01] VITALS: BP 147/86; PULSE 88
[2021-06-16 10:20] VITALS: BP 147/86; PULSE 88
== END 2021-06-16 10:25 | disposition home or self-care (01) | DRG 807 ==
LOC: OBGYN 12:37
PROVIDERS: Admitting Provider Obstetrics & Gynecology; Visit Provider Obstetrics & Gynecology
DX: O99.334 Smoking (tobacco) complicating childbirth (principal); Z37.0 Single live birth; F17.210 Nicotine dependence, cigarettes, uncomplicated; Z3A.40 40 weeks gestation of pregnancy; O75.89 Other specified complications of labor and delivery; R76.8 Other specified abnormal immunological findings in serum; Z87.59 Personal history of other complications of pregnancy, childbirth and the puerperium
CPT/HCPCS: 36415; 51702; 59025; 59409; 85025; 85027; 98960; 99211; J0290; J2795